=== PATIENT | female | born 1995 | race Caucasian/White ===

== ENCOUNTER 2018-05-08 12:21 | Emergency (ER) | payer OTHER ==
[~2018-05-08] VITALS: Ht 172.7 cm; Wt 62.6 kg
[2018-05-08 12:29] VITALS: Ht 172.7 cm; Wt 62.6 kg
[2018-05-08 13:26] VITALS: BP 96/65
== END 2018-05-08 13:26 | disposition home or self-care (01) ==
LOC: ED 12:21
DX: H10.13 Acute atopic conjunctivitis, bilateral (principal)

== ENCOUNTER 2018-08-16 12:54 | Emergency (ER) | payer OTHER ==
[~2018-08-16] VITALS: Ht 172.7 cm; Wt 65.8 kg
[2018-08-16 13:06] VITALS: Ht 172.7 cm; Wt 65.8 kg
[2018-08-16 15:49] VITALS: BP 115/70
== END 2018-08-16 15:49 | disposition home or self-care (01) ==
LOC: ED 12:54
DX: J98.01 Acute bronchospasm (principal)
CPT/HCPCS: J2930; J7613; J7644